=== PATIENT | female | born 1950 | race Caucasian/White ===

== ENCOUNTER 2017-01-05 10:16 | Outpatient (CLI) | payer MEDICARE ==
--- NOTE | 2017-01-05 15:41 | MRI ---
LEFT KNEE MRI WITHOUT IV CONTRAST: History: 66-year-old female with left knee pain following an injury one month ago with persistent pain medial ly. Technique: Multiplanar, multisequence MRI examination of the left knee is performed. FINDINGS: There is some joint effusion with a minimally distended suprapatellar recess. There is a complex tea r of the medial meniscus including an irregular re-tear as well as a horizontal component extending into the posterior horn. There is a prominent subchondral insufficiency type fracture involving the medial femoral condyle. There is narrowing of the medial compartment with some subtle subchondral ma rrow signal changes of the medial tibial plateau. The lateral meniscus appears intact. The anterior and posterior cruciate ligaments, collateral ligament complexes, quadriceps and patellar tendons are intact. IMPRESSION: Insufficiency subchondral fracture involving the medial femoral condyle. Complex tear of the medial meniscus. Joint effusion. POS: [facility]
== END 2017-01-05 10:17 | disposition home or self-care (01) ==
LOC: SCSMRI 10:16
PROVIDERS: ATTEND Orthopaedic Surgery
DX: M25.562 Pain in left knee (principal); S83.232A Complex tear of medial meniscus, current injury, left knee, initial encounter; M84.352A Stress fracture, left femur, initial encounter for fracture

== ENCOUNTER 2017-01-12 13:18 | Outpatient (CLI) | payer MEDICARE ==
[2017-01-12 15:01] LABS: #Basophils 0.1 thou/uL (0.0-0.2); #Eosinphils 0.2 thou/uL (0.0-0.7); #Lymphocytes 1.6 thou/uL (1.20-3.40); #Monocytes 0.4 thou/uL (0.11-0.59); #Neutrophils 3.7 thou/uL (1.40-6.50); %Basophils 0.9 % (0.0-1.0); %Eosinophils 3.9 % (0.0-10.0); %Lymphocytes 26.3 % (21.0-51.0); %Monocytes 7.2 % (0.0-10.0); Hematocrit 39.2 % (36.0-47.0); Mean Platelet Volume 8.7 fL (7.4-10.4); Red Blood Cell (RBC) Count 4.36 mill/uL (4.20-5.40)
[2017-01-12 15:20] LABS: Anion Gap 11 mmol/L (10-20); BUN (Urea Nitrogen) 14 mg/dL (9.8-20.1); Calc. Creatinine Clearance 0 mL/min (70-130); Calcium 9.4 mg/dL (7.8-10.44); Carbon Dioxide 28 mmol/L (23-31); Chloride 106 mmol/L (98-107); Estimated GFR-MDRD 86
--- NOTE | 2017-01-21 21:41 | EKG ---
Test Reason : Blood Pressure : / mmHG Vent. Rate : 067 BPM Atrial Rate : 067 BPM P-R Int : 150 ms QRS Dur : 084 ms QT Int : 410 ms P-R-T Axes : 066 031 028 degrees QTc Int : 433 ms Normal sinus rhythm Normal ECG No previous ECGs available Confirmed by DOROTHEA DASH (2) on 01/21/2017 9:41:40 PM Referred By: IERO Confirmed By:DOROTHEA DASH
== END 2017-01-12 13:19 | disposition home or self-care (01) ==
LOC: LABBT 13:18
PROVIDERS: ATTEND Orthopaedic Surgery
DX: Z01.818 Encounter for other preprocedural examination (principal); S83.207A Unspecified tear of unspecified meniscus, current injury, left knee, initial encounter
CPT/HCPCS: 80048; 85025; 93005; 93010

== ENCOUNTER 2017-04-08 09:19 | Outpatient (CLI) | payer MEDICARE | END 2017-04-08 09:20 | disposition home or self-care (01) | LOC: BICMAMMO 09:19 | PROVIDERS: ATTEND Family Medicine | DX: Z13.820 Encounter for screening for osteoporosis (principal); Z78.0 Asymptomatic menopausal state | CPT/HCPCS: 77080 ==